=== PATIENT | female | born 1960 | race Caucasian/White ===

== ENCOUNTER 2019-05-13 06:00 | Outpatient (RCR) | payer MEDICAID, SELFPAY | END 2019-06-12 00:01 | LOC: MPT 06:00 | PROVIDERS: Family Provider Family Medicine; Visit Provider Family Medicine | DX: R10.2 Pelvic and perineal pain (principal); M79.605 Pain in left leg | CPT/HCPCS: 97110 ×2; 97140 ×2; 97530 ==

== ENCOUNTER 2021-04-17 13:19 | Outpatient (CLI) | payer MEDICAID, SELFPAY ==
--- NOTE | 2021-04-17 13:29 | XR_ITS ---
WS: [id number] Cervical spine, 3 views, 04/17/2021 Clinical Data: CERVICALGIA Comparison: None. Findings: No compression fractures are seen. There is disc space narrowing at C3-C4, C4-C5 and C5-C6. There is loss of the normal lordotic curvature. Anterior osteophyte formation from C3 through C6 is noted. There is no prevertebral soft tissue swelling. The odontoid is unremarkable. The soft tissues of the neck and the lung apices are normal. XR/XR cervical spine 3V* [id number] Impression: 1. Degenerative disc narrowing at C3-C4 through C5-C6. 2. Loss of normal lordotic curvature from C3 through C6 with anterior osteophyt es.
== END 2021-04-17 13:20 | disposition home or self-care (01) ==
PROVIDERS: PCP Family Medicine; Visit Provider Family Medicine
DX: M50.31 Other cervical disc degeneration, high cervical region (principal); M25.78 Osteophyte, vertebrae
CPT/HCPCS: 72040